=== PATIENT | female | born 1985 ===

== ENCOUNTER 2020-10-15 09:10 | Day surgery (SDC) | payer OTHER | END 2020-10-15 15:25 | disposition home or self-care (01) | LOC: AMB-ENDOS 09:10 | PROVIDERS: ATTEND Colon & Rectal Surgery | DX: D13.0 Benign neoplasm of esophagus (principal); K44.9 Diaphragmatic hernia without obstruction or gangrene; Z20.822 Contact with and (suspected) exposure to COVID-19 ==